=== PATIENT | female | born 1995 | race Two or more races ===

== ENCOUNTER 2022-12-08 20:20 | Emergency (ER) | payer OTHER ==
[~2022-12-08] VITALS: Ht 157.5 cm; Wt 57.2 kg
--- NOTE | 2022-12-08 21:43 | NUR ---
Dr. Yo at bedside for MSE.
--- NOTE | 2022-12-08 21:50 | NUR ---
Xray at bedside.
[2022-12-08] MEDS ORDERED: TDAP DIPH,PERTUSS,TET VAC/PF 0.5 ML DISP.SYRIN IM ONE ×2 (21:54→22:00)
[2022-12-08] MEDS ORDERED: HYDR-3972 PO ×2 (22:02→22:06)
[2022-12-08 22:11] VITALS: BP 129/76
--- NOTE | 2022-12-08 22:11 | NUR ---
Patient discharged to home in stable condition. Written and verbal after care instructions given. Patient verbalizes understanding of instructions. Stressed follow up or return to ER for worsening s/s. Patient out of ER with steady gait, no acute signs of distress, VSS, all belongings taken.
== END 2022-12-08 22:11 | disposition home or self-care (01) ==
LOC: ER 20:33
DX: S60.221A Contusion of right hand, initial encounter (principal); S60.511A Abrasion of right hand, initial encounter; W22.09XA Striking against other stationary object, initial encounter; Y92.89 Other specified places as the place of occurrence of the external cause
CPT/HCPCS: 73130; 90715; A4663